=== PATIENT | male | born 1935 | race Caucasian/White ===

== ENCOUNTER 2019-02-19 15:59 | Observation (INO) ==
[2019-02-19 17:30] LABS: Basophils # 0.1 10*3/uL (0.0-0.2); Basophils % 0.6 % (0.0-0.8); Hematocrit 34.7 VOL% (42.0-52.0); Hemoglobin 11.6 GM/DL (14.0-18.0); Immature Granulocytes % 0.6 %; Immature Granulocytes Absolute 0.07 #; Lymphocytes # 2.7 10*3/uL (1.4-4.0); Lymphocytes % 25.2 % (21.2-54.2); Mean Corpuscular HGB Conc 33.4 GM/DL (32-36); Mean Corpuscular Volume 91.8 FL (87-102); Mean Platelet Volume 9.4 FL (9.6-12.0); Monocytes % 7.9 % (1.7-12.7); Neutrophils % 65.7 % (38.7-73.9); Platelet Count 232 T/CUMM (130-400); Red Blood Count 3.78 MC/CUMM (3.8-5.5); Red Cell Distribution Width 13.5 % (9.3-17.3); White Blood Count 10.8 T/CUMM (4-12)
[2019-02-19 17:46] LABS: Calcium 9.1 MG/DL (8.5-10.1); Osmolality,Calculated 272.2 MOS/KG (273-304)
[2019-02-19 17:50] LABS: Troponin I < 0.015 NG/ML (0.00-0.045)
[2019-02-19] MEDS ORDERED: ALUM/MAG/SIMETH/LIDO VISC 1:1 30 ML BOTTLE PO PRN (17:55)
[2019-02-19] MEDS ORDERED: diphenhydrAMINE CAP 25 MG CAPSULE PO PRN (20:05)
[2019-02-19] MEDS ORDERED: MORPHINE ER 30 MG TABLET PO PRN (20:05)
[2019-02-19] MEDS ORDERED: OXYMETAZOLINE 0.05% NASAL SPRAY 15 ML BOTTLE BOTH NARES PRN (20:05)
[2019-02-19] MEDS ORDERED: LORATADINE 10 MG TABLET PO PRN (20:05)
[2019-02-19 20:59] LABS: Apearance,Urine CLEAR (Clear); Bilirubin,Urine Negative (Negative); Blood, Urine Negative (Negative); Glucose,Urine (UA) Negative (Negative); Hyaline Casts,Urine 27 /LPF (0-3); Ketones,Urine 5 mg/dL (Negative); Mucus,Urine Occasional /LPF (Occasional); Nitrite,Urine Negative (Negative); Protein,Urine Negative; RBC,Urine 1 /HPF (0-4); Squamous Epithelial Cell,Urine Occasional /HPF (0-10); Urine Color Yellow (Yellow); Urine Specific Gravity 1.014 (1.001-1.035); Urine Urobilinogen < 2.0 EU/DL (0.2-1.0); WBC,Urine 1 /HPF (0-6)
[2019-02-19] MEDS ORDERED: MELATONIN 3 MG TABLET PO SCH (21:00)
[2019-02-19] MEDS ORDERED: MONTELUKAST 10 MG TABLET PO SCH (21:00)
[2019-02-19] MEDS ORDERED: CITALOPRAM 20 MG TABLET PO SCH (21:00)
[2019-02-19 21:31] LABS: Troponin I < 0.015 NG/ML (0.00-0.045)
[2019-02-19] MEDS: GABAPENTIN 300 MG CAPSULE PO SCH (21:34)
[2019-02-19] MEDS: DOCUSATE SODIUM 100 MG CAPSULE PO SCH (21:34)
[2019-02-19] MEDS: POTASSIUM CHLORIDE 20 MEQ TABLET PO SCH (21:34)
[2019-02-19] MEDS: busPIRone 5 MG TABLET PO SCH (21:35)
[2019-02-19] MEDS: POLYETHYLENE GLYCOL POWDER 17 GM PACK PO SCH (21:35)
[2019-02-19 23:35] LABS: Troponin I < 0.015 NG/ML (0.00-0.045)
[2019-02-20 05:40] LABS: Basophils # 0.1 10*3/uL (0.0-0.2); Basophils % 0.7 % (0.0-0.8); Hematocrit 32.2 VOL% (42.0-52.0); Hemoglobin 10.7 GM/DL (14.0-18.0); Immature Granulocytes % 0.3 %; Immature Granulocytes Absolute 0.03 #; Lymphocytes # 1.8 10*3/uL (1.4-4.0); Lymphocytes % 20.2 % (21.2-54.2); Mean Corpuscular HGB Conc 33.2 GM/DL (32-36); Mean Corpuscular Volume 91.7 FL (87-102); Mean Platelet Volume 9.4 FL (9.6-12.0); Monocytes % 8.6 % (1.7-12.7); Neutrophils % 70.2 % (38.7-73.9); Platelet Count 184 T/CUMM (130-400); Red Blood Count 3.51 MC/CUMM (3.8-5.5); Red Cell Distribution Width 13.6 % (9.3-17.3)
[2019-02-20 06:00] LABS: Calcium 8.5 MG/DL (8.5-10.1); Risk Ratio 2.72; Thyroid Stimulating Hormone 1.29 uIU/ml (0.358-3.74); VLDL CHOLESTEROL 17.8 MG/DL
[2019-02-20] MEDS ORDERED: LEVOTHYROXINE 25 MCG TABLET PO SCH (06:00)
[2019-02-20] MEDS: busPIRone 5 MG TABLET PO SCH (08:20)
[2019-02-20] MEDS: POLYETHYLENE GLYCOL POWDER 17 GM PACK PO SCH (08:20)
[2019-02-20] MEDS: DOCUSATE SODIUM 100 MG CAPSULE PO SCH (08:21)
[2019-02-20] MEDS: POTASSIUM CHLORIDE 20 MEQ TABLET PO SCH ×2 (08:21→15:09)
[2019-02-20] MEDS: GABAPENTIN 300 MG CAPSULE PO SCH ×4 (08:21→16:45)
[2019-02-20] MEDS: POTASSIUM CHLORIDE 20 MEQ TABLET PO PRN ×2 (08:21→10:20)
[2019-02-20] MEDS ORDERED: MULTIVITAMIN (CENTRUM) TABLET PO SCH (09:00)
[2019-02-20] MEDS ORDERED: PANTOPRAZOLE 40 MG TABLET PO SCH (09:00)
[2019-02-20] MEDS ORDERED: POLYVINYL ALCOHOL 1.4% OPH SOLN 15 ML BOTTLE BOTH EYES SCH (09:00)
[2019-02-20] MEDS ORDERED: CALCIUM (CARBONATE)/VITAMIN D 600 MG-400 UNIT TABLET PO SCH (09:00)
[2019-02-20] MEDS ORDERED: TAMSULOSIN 0.4 MG CAPSULE PO SCH (09:00)
[2019-02-20] MEDS ORDERED: FLUTICASONE 50 MCG NASAL SPRAY 16 GM BOTTLE BOTH NARES SCH (09:00)
[2019-02-20] MEDS ORDERED: RIVAROXABAN 20 MG TABLET PO SCH (09:00)
[2019-02-20] MEDS ORDERED: POTASSIUM CHLORIDE 10 MEQ TABLET PO ONE (12:04)
[2019-02-20] MEDS ORDERED: MAGNESIUM SULF RIDER 2 GM in PREMIX 1 EACH IV ONE (12:04)
[2019-02-20 12:40] VITALS: BP 127/69
[2019-02-20] MEDS ORDERED: SIMVASTATIN 20 MG TABLET PO SCH (16:30)
[2019-02-21] MEDS ORDERED: ASPIRIN EC 81 MG TABLET PO SCH (09:00)
[2019-02-21] MEDS ORDERED: ERGOCALCIFEROL 50,000 UNIT CAPSULE PO SCH (09:00)
== END 2019-02-20 18:00 ==
LOC: N.TELEN 16:38 → INTOOBSV 16:38 → SUATTDRO 16:38
PROVIDERS: ADMIT Internal Medicine; ATTEND Internal Medicine